=== PATIENT | female | born 1955 ===

== ENCOUNTER → 2019-12-24 | Outpatient (CLI) | payer OTHER ==
[~2019-12-24] MED LIST: CELEBREX100 MG PO; DOLOGEN CAPLET1 TAB; DOLOGESIC CAPLE1 TAB; TRAMADOL HCL50 MG PO
== END | disposition home or self-care (01) ==
LOC: MAMO-SONO 09:45 → RAD 13:04
DX: M17.12 Unilateral primary osteoarthritis, left knee (principal); J45.40 Moderate persistent asthma, uncomplicated